=== PATIENT | male | born 1955 | race Caucasian/White ===

== ENCOUNTER 2018-05-20 20:13 | Emergency (ER) | payer OTHER ==
[~2018-05-20] VITALS: Ht 180.3 cm; Wt 78.6 kg
[2018-05-20 20:26] VITALS: TEMP 36.5; Ht 180.3 cm; Wt 78.6 kg
[2018-05-20] MEDS ORDERED: hydrOXYzine HCL 25 MG TAB PO STA ×2 (20:42→21:39)
[2018-05-20] MEDS ORDERED: FAMOTIDINE IV INJ 20 MG in DEXTROSE 5% 100ML 100 ML IV STA (20:42)
[2018-05-20] MEDS ORDERED: DEXAMETHASONE SOD INJ 4 MG/ML VIAL IV STA (20:42)
--- NOTE | 2018-05-20 20:45 | EMERGENCY ROOM VISIT NOTE ---
History Report prepared by [place]: Rosalino Alvarez Under the Supervision of: Dr. Tawana Rodrigues D.O. First contact with patient: 20:29 Chief Complaint: ALLERGIC REACTION Stated Complaint: HIVES Nursing Triage Summary: Patient ambulatory to triage with an upright and steady gait, states "I went for a bike ride on [place] on Sunday. After getting home, I noticed a little bit of itching. As the night went on, the itching was worse. When I woke up yesterday, I noticed a few red spots on me. The spots started growing and spreading throughout the day. I went to [facility] last night and they gave me prednisone. I was also taking benadryl. This morning, I was fine. I worked the morning and then the rash started coming back and moving all around." Patient reports itching a lot. Patient denies any shortness of breath or trouble with swallowing. History of Present Illness The patient is a 62 year old male who presents to the Emergency Room with complaints of a coming and going diffuse rash that he first noticed on Sunday , 2 days ago. The patient notes that he was riding his bike on a "[place]" on Sunday for a light bike ride. When he got home he noticed a few small rashes over his bilateral arms, trunk, and bilateral legs. Sunday morning the rash seemed to improve on its own, and then worsened again last night. He went to [facility] last night and was placed on a Prednisone 5 day Burst, and he also took Claritin and Benadryl. The rashes were improved again this morning and were worsened by the time he took his lunch break. He notes that now the rash is beginning to "blister." The rash is very itchy. He denies any other symptoms at this time. He also denies changing to any new products or eating any new foods. Source of History: patient Onset: 2 days ago Position: arm, leg (bilateraly), other (Trunk) Quality: other (Rash/blisters) Timing: other (coming and going) Note: Itching Review of Systems See HPI for pertinent positives & negatives. A total of 10 systems reviewed and were otherwise negative. Past Medical & Surgical Hx of Zygomatic fracture. Social History Smoking Status: Current Every Day Smoker Drug Use: none (a) Occupation Status: employed Current/Historical Medications Scheduled Hydroxyzine Hcl (Atarax), 25 MG PO Q8 Allergies Coded Allergies: No Known Allergies (Unverified Allergy, Unknown, 08/20/03) Uncoded Allergies: NONE (Adverse Reaction, Unknown, 08/17/03) Physical Exam Vital Signs Date Time Temp Pulse Resp B/P (MAP) Pulse Ox O2 Delivery O2 Flow Rate FiO2 05/20/18 22:03 55 113/75 96 05/20/18 20:26 36.5 68 18 131/77 97 Room Air 05/20/18 20:23 97 Room Air Physical Exam GENERAL: alert, well appearing, well nourished, no distress, non-toxic EYE EXAM: normal conjunctiva, PERRL and EOM's grossly intact OROPHARYNX: no exudate, no erythema, lips, buccal mucosa, and tongue normal and mucous membranes are moist. No mucocutaneous lesions, Tongue midline, no tongue swelling. NECK: supple, no nuchal rigidity, no adenopathy, non-tender. no stridor LUNGS: Clear to auscultation. Normal chest wall mechanics. No wheezes, rhonchi, or rales. HEART: no murmurs, S1 normal and S2 normal ABDOMEN: abdomen soft, non-tender, normo-active bowel sounds, no masses, no rebound or guarding. BACK: Back is symmetrical on inspection and there is no deformity, no midline tenderness, no CVA tenderness. SKIN: Generalized maculopapular erythematous rash, some isolated islands and other areas of confluence that appear more urticarial, no vesicles, no bullae, no petechia, no sloughing, no joint effusions. UPPER EXTREMITIES: upper extremities are grossly normal. LOWER EXTREMITIES: No pitting edema. NEURO EXAM: Normal sensorium, cranial nerves II-XII grossly intact, normal speech, no gross weakness of arms, no gross weakness of legs. Medical Decision & Procedures Laboratory Results 05/20/18 21:10 Red Blood Count 4.79, Mean Corpuscular Volume 92.1, Mean Corpuscular Hemoglobin 32.6, Mean Corpuscular Hemoglobin Concent 35.4, Mean Platelet Volume 10.5, Neutrophils (%) (Auto) 86.3, Lymphocytes (%) (Auto) 9.4, Monocytes (%) (Auto) 3.9, Eosinophils (%) (Auto) 0.0, Basophils (%) (Auto) 0.1, Neutrophils # (Auto) 13.19, Lymphocytes # (Auto) 1.43, Monocytes # (Auto) 0.59, Eosinophils # (Auto) 0.00, Basophils # (Auto) 0.01 05/20/18 21:10 Test 05/20/18 21:10 White Blood Count 15.26 K/uL (4.8-10.8) Red Blood Count 4.79 M/uL (4.7-6.1) Hemoglobin 15.6 g/dL (14.0-18.0) Hematocrit 44.1 % (42-52) Mean Corpuscular Volume 92.1 fL (80-100) Mean Corpuscular Hemoglobin 32.6 pg (25-34) Mean Corpuscular Hemoglobin Concent 35.4 g/dl (32-36) Platelet Count 213 K/uL (130-400) Mean Platelet Volume 10.5 fL (7.4-10.4) Neutrophils (%) (Auto) 86.3 % Lymphocytes (%) (Auto) 9.4 % Monocytes (%) (Auto) 3.9 % Eosinophils (%) (Auto) 0.0 % Basophils (%) (Auto) 0.1 % Neutrophils # (Auto) 13.19 K/uL (1.4-6.5) Lymphocytes # (Auto) 1.43 K/uL (1.2-3.4) Monocytes # (Auto) 0.59 K/uL (0.11-0.59) Eosinophils # (Auto) 0.00 K/uL (0-0.5) Basophils # (Auto) 0.01 K/uL (0-0.2) RDW Standard Deviation 45.5 fL (36.4-46.3) RDW Coefficient of Variation 13.5 % (11.5-14.5) Immature Granulocyte % (Auto) 0.3 % Immature Granulocyte # (Auto) 0.04 K/uL (0.00-0.02) Anion Gap 7.0 mmol/L (3-11) Est Creatinine Clear Calc Drug Dose 80.4 ml/min Estimated GFR () 90.0 Estimated GFR (Non- 77.7 BUN/Creatinine Ratio 20.9 (10-20) Calcium Level 9.7 mg/dl (8.5-10.1) Lyme Disease IgG Antibody NEG (NEG) Lyme Disease IgM Antibody NEG (NEG) Laboratory results per my review. Medications Administered Medications (Trade) Dose Ordered Sig/Pavel Route Start Time Stop Time Status Last Admin Dose Admin Dexamethasone Sodium Phosphate (Decadron Inj) 10 mg NOW STAT IV 05/20/18 20:42 05/20/18 20:48 DC 05/20/18 21:19 10 MG Famotidine 20 mg/ Dextrose 102 ml @ 200 mls/hr NOW STAT IV 05/20/18 20:42 05/20/18 21:12 DC 05/20/18 21:19 200 MLS/HR Hydroxyzine HCl (Vistaril Tab) 25 mg NOW STAT PO 05/20/18 20:42 05/20/18 20:48 DC 05/20/18 21:19 25 MG Hydroxyzine HCl (Vistaril Tab) 25 mg NOW STAT PO 05/20/18 21:39 05/20/18 21:40 DC 05/20/18 21:48 25 MG ED Course 2031: The patient was evaluated in room C12B. A complete history and physical exam was performed. 2041: Vistaril 25 mg PO. Famotidine 102 ml @ 200 mls/hr IV. Decadron 10 mg IV. 2106: I updated the patient at this time. 2137: I checked on the patient. He is doing better. I discussed the findings and the treatment plan with the patient. He verbalizes agreement and understanding. He was discharged home. Medical Decision Differential diagnosis: Etiologies such as contact dermatitis, viral exanthem, urticaria, allergic reaction, Harrison-Jakob syndrome, toxic epidermal necrolysis, erythema multiforme, cellulitis, scabies, HSV, varicella, zoster, eczema, staph scalded skin syndrome, fungal infection, as well as others were entertained. Patient improved here following medications. Unclear etiology of patient's generalized allergic reaction. No respiratory or airway involvement, no chest pain or abdominal pain. I do not suspect anaphylaxis. Patient hemodynamically stable throughout. Discussed with patient common causes of generalized allergic reactions, as well as presentation of other disease processes. Labs drawn and sent. Patient with a leukocytosis likely secondary to starting steroids yesterday as prescribed by urgent care. Other tickborne illnesses and RAMSEY still pending. Patient made aware that if these were positive he will receive a phone call. Discussed with him follow-up with his family doctor, continued use of Benadryl or Atarax, finishing his course of steroids, use of Pepcid, symptoms to watch and return for, he verbalized understanding and was in agreement. Medication Reconcilliation Current Medication List: was personally reviewed by me Blood Pressure Screening Patient's blood pressure: Normal blood pressure Impression Primary Impression: Allergic reaction Additional Impression: Urticaria Scribe Attestation The scribe's documentation has been prepared under my direction and personally reviewed by me in its entirety. I confirm that the note above accurately reflects all work, treatment, procedures, and medical decision making performed by me. Departure Information Dispostion Home / Self-Care Prescriptions Hydroxyzine Hcl (ATARAX) 25 Mg Tab 25 MG PO Q8 for Itching, #20 TAB Prov: Tawana Rodrigues, DO 05/20/18 Referrals Dae Gibbons M.D. (PCP) Patient Instructions [facility] Additional Instructions Please continue the course of steroids that you have started. You may take Pepcid every day also. You may use the Atarax during the day if it makes you feel less sleepy and save the Benadryl for the evening. Both of these will help with itching. Benadryl will also help block some of the histamine response associated with a large reaction. Please avoid any new foods or personal hygiene products which could contribute to an ongoing allergic reaction. If your blood work is abnormal, you will receive a phone call. Please also try to establish a local family doctor. If you have any worsening rash, develop sloughing of the skin, weeping or oozing from the rash, purple spots within the rash, fevers or chills, facial swelling, trouble swallowing, trouble breathing, chest pain, abdominal pain, you have any other new concerns, please return to the emergency room. Problem Qualifiers Primary Impression: Allergic reaction Encounter type: initial encounter Qualified Codes: T78.40XA - Allergy, unspecified, initial encounter
[2018-05-20 21:22] LABS: BASO % 0.1 %; BASO ABS # 0.01 K/uL (0-0.2); HEMATOCRIT 44.1 % (42-52); HEMOGLOBIN 15.6 g/dL (14.0-18.0); IG# 0.04 K/uL (0.00-0.02); LYMPH % 9.4 %; LYMPH ABS # 1.43 K/uL (1.2-3.4); MEAN CELL VOLUME 92.1 fL (80-100); MEAN CORPUSCULAR HEMOGLOBIN 32.6 pg (25-34); MEAN CORPUSCULAR HGB CONC 35.4 g/dl (32-36); MEAN PLATELET VOLUME 10.5 fL (7.4-10.4); MONO % 3.9 %; MONO ABS # 0.59 K/uL (0.11-0.59); NEUT % 86.3 %; NEUT ABS # 13.19 K/uL (1.4-6.5); PLATELET COUNT 213 K/uL (130-400); RED CELL DISTRIBUTION WIDTH CV 13.5 % (11.5-14.5); RED CELL DISTRIBUTION WIDTH SD 45.5 fL (36.4-46.3); WHITE BLOOD COUNT 15.26 K/uL (4.8-10.8)
[2018-05-20 21:39] LABS: CALCIUM 9.7 mg/dl (8.5-10.1); CREATININE 1.04 mg/dl (0.60-1.40); POTASSIUM 4.1 mmol/L (3.5-5.1)
[2018-05-20] MEDS ORDERED: HYDR-3124 PO (21:45)
[2018-05-20 22:03] VITALS: BP 113/75; PULSE 55; O2SAT 96
[2018-05-23 16:37] LABS: ANA SCREEN TC 249X NEGATIVE (NEGATIVE)
== END 2018-05-20 22:03 | disposition home or self-care (01) ==
LOC: C.EDB 20:14 → C.EDC 22:03
DX: L50.0 Allergic urticaria (principal); T78.40XA Allergy, unspecified, initial encounter; X58.XXXA Exposure to other specified factors, initial encounter; F17.210 Nicotine dependence, cigarettes, uncomplicated